=== PATIENT | female | born 1950 | race Caucasian/White ===

== ENCOUNTER 2016-09-27 15:12 | Emergency (ER) | payer MEDICARE, MEDICAID ==
[~2016-09-27] VITALS: Ht 165.1 cm; Wt 77.1 kg
[~2016-09-27 15:12] MED LIST: AFRIN 15 ML15 ML; CHEWABLE ASPIRI81 MG PO; CLONIDINE0.2 MG PO; DILTIAZEM360 MG PO; FLEXERIL10 MG PO; GEMFIBROZIL600 M1 PO; HYDROCODONE1 TABLET PO; LISINOPRIL40 MG PO; LORTAB 5/500 501 TAB PO; LORTAB 500 MG-71 TAB PO; LOVENOX40 MG/0.4 SC; NAPROSYN 500MG500 MG PO; PROZAC20 MG PO; WARFARIN SODIU7.5 MG PO; WARFARIN SODIUM5 MG PO; WARFARIN4 MG PO; ZOCOR40 MG PO
--- NOTE | 2016-09-27 15:42 | Urgent Treatment Center Report ---
History of Present Issue Date/Time Seen by Provider 09/27/16 1534 Visit Reason Pt arrived:Walked Presenting Problem:PT STATES FALLING LAST MONDAY AND WAS SEEN IN [place] ED. STATES NOW SHE HAS PAIN, SWELLING, TIGHTNESS AND REDNESS TO LLE. NOTED TO HAVE BLISTERS TO RLE Location if Accident: Onset of symptoms date/time:/ or onset unknown for:MEDICAL HX UNKNOWN Have you (or family members/close friends) recently traveled outside the [place]? N If Yes, where/when: Have you had exposure to infectious disease within the past month? TB? Other? Specify: Patient states that she fell last week at her neices house and injuried her left lower leg, states that she was seen in the ER in [place] and treated state that they gave her pain medication states that she continued to get worse states that she is on blood thinners and still having pain, swelling, tightness with redness begining on her left calf area. States that she noticed that now she is begining to get blisters on the skin ALLERGIES Coded Allergies: Penicillins (09/27/16) Sulfa (Sulfonamide Antibiotics) (09/27/16) Uncoded Allergies: MULTIPLE FOODS (BLOATING, GI DISTRESS-NO RESP INVOLVMENT 10/31/12) Home Medications Active Scripts Oxymetazoline Hcl (Afrin 15 Ml) 15 ML NA BID 3 Days Prov: 10/05/11 Reported Medications Fluoxetine Hcl (Prozac) 20 MG PO DAILY Aspirin (Aspirin, Chewable) 81 MG PO DAILY Diltiazem Hydrochloride (Diltiazem) 360 MG PO DAILY Warfarin Sodium 1 TAB PO DAILY Lisinopril (Lisinopril 40MG) 40 MG PO DAILY Gemfibrozil 600 MG PO BID History Medical History General CAD? No Angina: No CA: No Hypertension? Yes Hyperlipidemia? Yes CHF? No DVT? No PE? No COPD? Yes Asthma? Yes Anemia? No GERD? No Gastric ulcers? No GI Bleed? No Hernia? No Thyroid Problems? No Hypothyroidism? No CVA? No Seizures? No Diabetes? No Renal Insuffiency? No UTI? Yes Stones? Yes BPH? No GB Disease: Yes Nephritic Syndrome? No Asplenia? No Hepatitis? No Sickle Cell Disease? No Arthritis? No Migraines? No Cataracts? No Glaucoma? No MRSA? No HIV? No TB? No Anxiety? No Depression? No Cancer? No Immunization HX DT/Tetanus > 10 YRS Flu 2012-13FSN Pneumonia Received In Past Surgical Hx Previous Surgery?Y Gallbladd ATRIAL-SEPTAL DEFECT Hysterect D&C X2 LOYDA FILTER 2006 HEMMOROID BANDING Family History Family HX Diabetes No CAD Yes Hypertension No Hyperlipidemia Yes Cancer Yes TB No Social History Smoking Hx Smoker: Never Smoker Tobacco: No Packs/day N/A Alcohol Alcohol: No Review of Systems All Other Systems Reviewed and Negative Comment Pain, swelling and redness with fluid filled blisters on her left calf area after falling last week in [place] Physical Exam Vital Signs Vital Signs Date Time Temp Pulse Resp B/P Pulse O2 O2 Flow FiO2 Ox Delivery Rate 09/27 1527 98.6 67 18 132/59 94 General Appearance normal appearance, WD/WN, no apparent distress Respiratory Status Yes: trachea midline, chest symmetrical, non tender chest. No: respiratory distress. 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 States that she feel last week with extensive swelling noted in left calf area, tender to touch, small scabbed over area below knee, Patient describes area as painful tender to touch Medical Decision Making LABS/Meds/Orders Pt receiving controlled substance in ED? No Results/Orders Orders Procedure Date/time Status LOWER LEG-LT 09/27 1535 Active VENOUS LOWER EXT LT 09/27 1532 Active Progress [facility] Progress Notes Date 09/27/16 Time 1607 Comment Patient being transfered to the ER due to condition and worsening of pain after doppler. ER notified and report given patient transfered by wheelchair Departure Departure Time of Disposition 1610 Disposition Still a Patient Clinical Impression Primary Impression: Lower extremity injury Qualifiers: Encounter type: initial encounter Laterality: left Qualified Code: S89.92XA - Unspecified injury of left lower leg, initial encounter Condition STABLE Referrals Kevyn CARROLL,Arley Zuniga (Family) at 1610
--- NOTE | 2016-09-27 15:42 | Urgent Treatment Center Report ---
History of Present Issue Date/Time Seen by Provider 09/27/16 1534 Visit Reason Pt arrived:Walked Presenting Problem:PT STATES FALLING LAST MONDAY AND WAS SEEN IN [place] ED. STATES NOW SHE HAS PAIN, SWELLING, TIGHTNESS AND REDNESS TO LLE. NOTED TO HAVE BLISTERS TO RLE Location if Accident: Onset of symptoms date/time:/ or onset unknown for:MEDICAL HX UNKNOWN Have you (or family members/close friends) recently traveled outside the [place]? N If Yes, where/when: Have you had exposure to infectious disease within the past month? TB? Other? Specify: Patient states that she fell last week at her neices house and injuried her left lower leg, states that she was seen in the ER in [place] and treated state that they gave her pain medication states that she continued to get worse states that she is on blood thinners and still having pain, swelling, tightness with redness begining on her left calf area. States that she noticed that now she is begining to get blisters on the skin ALLERGIES Coded Allergies: Penicillins (09/27/16) Sulfa (Sulfonamide Antibiotics) (09/27/16) Uncoded Allergies: MULTIPLE FOODS (BLOATING, GI DISTRESS-NO RESP INVOLVMENT 10/31/12) Home Medications Active Scripts Oxymetazoline Hcl (Afrin 15 Ml) 15 ML NA BID 3 Days Prov: 10/05/11 Reported Medications Fluoxetine Hcl (Prozac) 20 MG PO DAILY Aspirin (Aspirin, Chewable) 81 MG PO DAILY Diltiazem Hydrochloride (Diltiazem) 360 MG PO DAILY Warfarin Sodium 1 TAB PO DAILY Lisinopril (Lisinopril 40MG) 40 MG PO DAILY Gemfibrozil 600 MG PO BID History Medical History General CAD? No Angina: No [place]: No Hypertension? Yes Hyperlipidemia? Yes CHF? No DVT? No PE? No COPD? Yes Asthma? Yes Anemia? No GERD? No Gastric ulcers? No GI Bleed? No Hernia? No Thyroid Problems? No Hypothyroidism? No CVA? No Seizures? No Diabetes? No Renal Insuffiency? No UTI? Yes Stones? Yes BPH? No GB Disease: Yes Nephritic Syndrome? No Asplenia? No Hepatitis? No Sickle Cell Disease? No Arthritis? No Migraines? No Cataracts? No Glaucoma? No MRSA? No HIV? No TB? No Anxiety? No Depression? No Cancer? No Immunization HX DT/Tetanus > 10 YRS Flu 2012-13FSN Pneumonia Received In Past Surgical Hx Previous Surgery?Y Gallbladd ATRIAL-SEPTAL DEFECT Hysterect D&C X2 LOYDA FILTER 2006 HEMMOROID BANDING Family History Family HX Diabetes No CAD Yes Hypertension No Hyperlipidemia Yes Cancer Yes TB No Social History Smoking Hx Smoker: Never Smoker Tobacco: No Packs/day N/A Alcohol Alcohol: No Review of Systems All Other Systems Reviewed and Negative Comment Pain, swelling and redness with fluid filled blisters on her left calf area after falling last week in [place] Physical Exam Vital Signs Vital Signs Date Time Temp Pulse Resp B/P Pulse O2 O2 Flow FiO2 Ox Delivery Rate 09/27 1527 98.6 67 18 132/59 94 General Appearance normal appearance, WD/WN, no apparent distress Respiratory Status Yes: trachea midline, chest symmetrical, non tender chest. No: respiratory distress. 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 States that she feel last week with extensive swelling noted in left calf area, tender to touch, small scabbed over area below knee, Patient describes area as painful tender to touch Medical Decision Making LABS/Meds/Orders Pt receiving controlled substance in ED? No Results/Orders Orders Procedure Date/time Status LOWER LEG-LT 09/27 1535 Active VENOUS LOWER EXT LT 09/27 1532 Active Progress [facility] Progress Notes Date 09/27/16 Time 1607 Comment Patient being transfered to the ER due to condition and worsening of pain after doppler. ER notified and report given patient transfered by wheelchair Departure Departure Time of Disposition 1610 Disposition Still a Patient Clinical Impression Primary Impression: Lower extremity injury Qualifiers: Encounter type: initial encounter Laterality: left Qualified Code: S89.92XA - Unspecified injury of left lower leg, initial encounter Condition STABLE Referrals Kevyn CARROLL,Arley Zuniga (Family) at 1610
[2016-09-27] MEDS ORDERED: VERAPAMIL HCL120 M1 PO (16:19)
--- NOTE | 2016-09-27 16:25 | Emergency Room Report ---
History of Present Illness Time Seen by 161Stoney Presenting Problem in Triage Pt arrived:Wheelchair Presenting Problem:TRANSFERRED TO ER FROM [facility]. PT C/O SEVERE LEFT LEG PAIN AND SWELLING PT FELL LAST WEEK AND HAS BEEN COMPLAINING OF LEG PAIN AND SWELLING. LEG HOT TOO TOUCH. POS. PMS. Onset of symptoms date/time:09/21/16 or onset unknown for:MEDICAL HX UNKNOWN Treatment Prior to Arrival: SEEN IN [facility] Provided by:NURSE Sepsis Risk Assessment: Temp: 98.6 B/P: 132/59 MAP: 83 Pulse: 67 Resp: 18 Recent fever? N Clinical Suspician of Infection? Y Mental Status: 1 - Regular (Normal Baseline) Sepsis Risk:Low Sepsis Risk Have you (or family members/close friends) recently traveled outside the [place]? N If Yes, where/when: Have you had exposure to infectious disease within the past month? N TB? Other? Specify: Patient fell last week she states she was seen at an outside facility and she has continued pain and swelling in her leg. Gastroesophageal reflux disease and achy worse with movement she states it radiates from her lower leg up towards her knee and thigh area. It was on Monday she tripped over a stroller in her LEFT leg and her LEFT leg is become more swollen painful and tender since then his pain is made worse with ambulation on the LEFT lower leg. Denies numbness in her foot. Denies chest pain or shortness of breath or headache or abdominal pain no nausea or vomiting. ALLERGIES Coded Allergies: Penicillins (09/27/16) Sulfa (Sulfonamide Antibiotics) (09/27/16) Uncoded Allergies: MULTIPLE FOODS (BLOATING, GI DISTRESS-NO RESP INVOLVMENT 10/31/12) Home Medications Reported Medications Fluoxetine Hcl (Prozac) 20 MG PO DAILY Warfarin Sodium 1 TAB PO DAILY Gemfibrozil 600 MG PO BID Verapamil Hcl 120 MG PO DAILY #60 History Medical History General CAD? No Angina: No [place]: No Hypertension? Yes Hyperlipidemia? Yes CHF? No DVT? No PE? No COPD? Yes Asthma? Yes Anemia? No GERD? No Gastric ulcers? No GI Bleed? No Hernia? No Thyroid Problems? No Hypothyroidism? No CVA? No Seizures? No Diabetes? No Renal Insuffiency? No End Stage Renal Disease? No UTI? Yes Stones? Yes BPH? No GB Disease: Yes Nephritic Syndrome? No Asplenia? No Hepatitis? No Sickle Cell Disease? No Arthritis? No Migraines? No Cataracts? No Glaucoma? No MRSA? No HIV? No TB? No Anxiety? No Depression? No Cancer? No Immunization Hx DT/Tetanus > 10 YRS Flu 2012-13FSN Pneumonia Received In Past Surgical Hx Previous Surgery?Y Gallbladd ATRIAL-SEPTAL DEFECT Hysterect D&C X2 LOYDA FILTER 2006 HEMMOROID BANDING Family History Family Hx Diabetes No CAD Yes Hypertension No Hyperlipidemia Yes Cancer Yes TB No Social History Smoking Hx Smoker: Former Smoker Tobacco: No Packs/day N/A Alcohol Alcohol: No Review of Systems All Other Systems Reviewed and Negative Physical Exam Vital Signs Vital Signs Date Time Temp Pulse Resp B/P Pulse O2 O2 Flow FiO2 Ox Delivery Rate 09/27 1846 98.6 60 18 140/70 97 09/27 1706 98.6 62 18 130/74 97 09/27 1606 98.6 67 18 132/59 97 09/27 1527 98.6 67 18 132/59 94 General Appearance: Nontoxic Head: Normocephalic, without obvious abnormality, atraumatic. Eyes: conjunctiva/corneas clear ENT: Mucous membranes moist. Neck: No jugular venous distention. Cardiac: regular rate and rhythm Lungs: Clear to auscultation bilaterally Abdomen: Nontender, Nondistended, positive bowel sounds, no rebound : No CVA tenderness Extremities: LEFT lower extremity has swelling anterior laterally. Tenderness throughout the anterior compartment and tenderness throughout the lateral aspect of the fibular area. He states she has pain with passive motion. There is ecchymosis throughout the anterior lateral portion of the tib-fib area. Pulses are 1+ capillary refill is intact sensation is intact hip nontender foot nontender Musculoskeletal: No chest wall tenderness Skin: No rashes or lesions to exposed skin. Neurologic: Alert. No gross focal deficits Psychiatric: Normal affect (Charli CARROLL, Ken) General Appearance normal appearance Respiratory Status No: respiratory distress. Cardiovascular no JVD Neurologic alert Medical Decision Making LABS/Meds/Orders Pt receiving controlled substance in ED? No Comment 631 had mehdi Iqbal MD states no ortho available, transfer to , call out to Discussed with Dr. Melendez of orthopedics, plan is transfer to ER. The orthopedic doctor states that orthopedics may not actually see the patient that it may be handled by vascular there is a compartment syndrome concern. I discussed with a do not have a Rogerio here. Results/Orders Laboratory Tests 09/27/16 1650: Lactic Acid 1.0 09/27/16 1650: Sodium 135 L, Potassium 3.9, Chloride 100, Carbon Dioxide 25, BUN 15, Creatinine 0.9, Estimated Creat Clear 73, Estimated GFR (MDRD) 62, Glucose 104, Calcium 9.0, Total Bilirubin 1.5 H, AST 37, ALT 29, Alkaline Phosphatase 59, Total Protein 7.8, Albumin 3.2 L, Globulin 4.6 H, Albumin/Globulin Ratio 0.7 L, PT 18.0 H, INR 1.66 H, APTT 34.3 H, WBC 9.0, RBC 3.27 L, Hgb 9.8 L, Hct 30.3 L, MCV 92.7, RDW 15.5, Plt Count 227, MPV 8.0, Gran % 55.1, Gran # 5.0, Lymphocytes % 35.8, Monocytes % 6.2, Eosinophils % 2.2, Basophils % 0.7, Lymphocytes # 3.2, Monocytes # 0.6, Eosinophils # 0.2, Basophils # 0.1, PUBS MCHC 32.3, MCH 29.9 Current Medication Orders Sig/Joya Start time Last Medication Dose Route Stop Time Status Admin Sodium Chloride 10 ML PRN PRN 09/27 1715 AC IV 09/28 1704 Sodium Chloride 100 ML .STK-MED ONE 09/27 1701 DC IV Clindamycin Phosphate 0 .STK-MED ONE 09/27 1700 DC .ROUTE Clindamycin Phosphate 600 MG ONCE ONE 09/27 1630 DC 09/27 Sodium Chloride 100 ML IV 09/27 1731 1703 Orders Procedure Date/time Status IV SALINE LOCK 09/27 1704 Active PARTIAL THROMBOPLASTIN TIME 09/27 1628 Complete PROTHROMBIN TIME 09/27 1628 Complete CULTURE, BLOOD 09/27 162 Active LACTIC ACID 09/27 1626 Complete CBC WITH AUTO DIFF 09/27 1626 Complete CHEM 12 PROFILE 09/27 1626 Complete LOWER LEG-LT 09/27 1535 Active VENOUS LOWER EXT LT 09/27 1532 Complete XRAY/CT/US XRAY/CT/US XRAY leg XR interpretation by reviewed by me Xray Results no fracture seen Comment LEFT leg no fracture seen Departure Departure Time of Disposition 183 Disposition DC/XFER from ER to [facility] Clinical Impression Primary Impression: Injury of lower extremity Qualifiers: Encounter type: initial encounter Laterality: left Qualified Code: S89.92XA - Unspecified injury of left lower leg, initial encounter Condition STABLE Referrals Kevyn CARROLL,Arley Zuniga (Family) ED Critical Care Critical Care No at [id number]
--- NOTE | 2016-09-27 16:33 | CARDIOVASCULAR REPORT ---
"Venous Exam Indications: 729.5 Pain in limb. 782.3 Edema. IMPRESSIONS No evidence of deep or superficial vein thrombosis involving the left lower extremity History: Left lower extremity pain. Redness of the right lower extremity. PMH: Deep vein thrombosis. Risk factors: Hypertension. Recent trauma. Patient states she fell a few weeks ago now with extensive bruising in the left lower extremity and a visible knot on the lateral aspect of calf. Labs, prior tests, procedures, and surgery: An umbrella filter was placed in the inferior vena cava 2005 due to DVT history. Labs, prior tests, procedures, and surgery: An umbrella filter was placed in the inferior vena cava 2005 due to DVT history. Left lower extremity venous duplex evaluation. Doppler flow study including spectral analysis, color and george scale imaging. Location: Vascular laboratory. Patient status: Emergency department. Incidental findings: A generous hematoma is noted incidentally on the left. Due to size, measurements unobtainable. Tables: Venous flow and imaging: + +-------+ + |Location |Overall|Flow properties | + +-------+ + |Left common femoral |Patent |Normal phasicity; spontaneous; | | | |normal augmentation; compressible | + +-------+ + |Left saphenofemoral junction|Patent |Compressible | + +-------+ + |Left profunda femoral |Patent |Compressible | + +-------+ + |Left femoral |Patent |Normal phasicity; spontaneous; | | | |normal augmentation; compressible | + +-------+ + |Left greater saphenous |Patent |Normal phasicity; spontaneous; | | | |normal augmentation; compressible | + +-------+ + |Left popliteal |Patent |Normal phasicity; spontaneous; | | | |normal augmentation; compressible | + +-------+ + |Left posterior tibial |Patent |Compressible | + +-------+ + |Left peroneal |Patent |Compressible | + +-------+ + |Left gastrocnemius |Patent |Compressible | + +-------+ + |Left soleal |Patent |Compressible | + +-------+ + (Report amended ) Electronically signed by: Harvey Braga [id number]"
[2016-09-27 17:27] LABS: LYMPH # 3.2 K/mm3 (0.7-4.5); LYMPH % 35.8 % (10-50.0)
[2016-09-27 17:29] LABS: HEMOGLOBIN 9.8 g/dL (12.2-16.2)
[2016-09-27 21:29] VITALS: BP 156/72
--- NOTE | 2016-09-28 08:10 | RADIOLOGY REPORT PS360 ---
LOWER LOWER LEG-LT Ordering Physician: Ken Augustin MD Patient Age: 66 years: Female HISTORY: FELL A WEEK AGO TECHNIQUE: AP lateral left lower leg FINDINGS No fracture. Bones well mineralized. 2 views of knee and ankle included on this lower leg study are grossly unremarkable. Vascular calcification posterior to the knee popliteal artery and distal SFA noted There appears be some trace minor edema in the subcutaneous soft tissues lower leg most evident just inferior to patella IMPRESSION: No acute osseous findings Tibia and fibula are intact. No fracture.
== END 2016-09-27 21:31 | disposition short-term general hospital (02) ==
LOC: UTC 15:12 → ER 15:14 → UTC 15:14 → ER 21:31
PROVIDERS: Emergency Medicine
DX: S89.92XA Unspecified injury of left lower leg, initial encounter (principal); W01.0XXA Fall on same level from slipping, tripping and stumbling without subsequent striking against object, initial encounter; Y92.009 Unspecified place in unspecified non-institutional (private) residence as the place of occurrence of the external cause; I10 Essential (primary) hypertension; J44.9 Chronic obstructive pulmonary disease, unspecified

== ENCOUNTER → 2016-11-30 | Outpatient (CLI) | payer MEDICARE, MEDICAID ==
[~2016-11-30] MED LIST changes: +VERAPAMIL HCL120 M1 PO
--- NOTE | 2016-11-30 19:13 | RADIOLOGY REPORT PS360 ---
LOWER LEG-LT COMPARISON: Left lower leg 09/27/2016 HISTORY: Left lower leg pain TECHNIQUE: AP and lateral views FINDINGS: The tibia and fibula appear intact with no evidence of recent or old fracture. The soft tissues are normal. IMPRESSION: Negative left lower leg
== END ==
LOC: RAD 14:27
DX: M79.605 Pain in left leg (principal)

== ENCOUNTER → 2017-01-03 | Outpatient (CLI) | payer MEDICARE, MEDICAID ==
--- NOTE | 2017-01-03 14:33 | RADIOLOGY REPORT PS360 ---
US EXTREMITIES LT COMPLETE CLINICAL INDICATION: SWELLING,MASS AND LUMP OF LLL ORDERING PHYSICIAN: NOMAN ZARAGOZA MD PATIENT AGE: 66 years COMPARISON: None FINDINGS: There is an oval area of increased echogenicity in the subcutaneous region overlying the swollen area in the left lower extremity. This measures approximately 2.7 cm in length and 0.8 cm in thickness likely related to a hematoma. This is superficial to the muscle. No cystic area is evident. There are some mild edematous changes in the left lower extremity subcutaneous tissues. IMPRESSION: Focal area of homogeneous echogenicity in the subcutaneous region corresponding palpable abnormality probably related to hematoma
== END ==
LOC: RAD 09:15
DX: R22.42 Localized swelling, mass and lump, left lower limb (principal)